=== PATIENT | female | born 1950 | race Caucasian/White ===

== ENCOUNTER 2017-06-28 04:00 | Inpatient (IN) | payer OTHER, MEDICARE ==
[~2017-06-28] VITALS: Ht 167.6 cm; Wt 73.0 kg
[~2017-06-28 04:00] MED LIST: CALCIUM 500 +1 EAC5 PO; CITALOPRAM HBR10 MG PO; DULERA 200 MCG/13 GM INH; ELIQUIS2.5 M1 PO; MULTIVITAMINS1 EAC9 PO; PROAIR HFA8.5 GM INH; SINGULAIR10 M1 PO; XOPENEX0.63 MG/1 INH/SOL
--- NOTE | 2017-06-28 09:10 | Admission Core Measures ---
Acute Coronary Syndrome (CM) ACS Core Measures Acute Coronary Syndrome Diagnosis No Congestive Heart Failure (NEW) CHF Core Measures Congestive Heart Failure Diagnosis No Cerebrovascular Accident (NEW) CVA Core Measures CVA/TIA Diagnosis No Venous Thromboembolism VTE Core Brittney (View Protocol) VTE Risk Factors Surgery No Mechanical VTE Prophylaxis d/t N/A MechProphylax Ordered No VTE Pharm Prophylaxis d/t NA PharmProphylax ordered Problem List As ranked by this Provider includes Assessment & Plan 1. Primary osteoarthritis of right hip HOME MEDS Home Med List Albuterol Sulfate (Proair Hfa) 90 MCG HFA.AER.AD 2 PUF INH PRN ASTHMA ( Reported) Apixaban (Eliquis) 2.5 MG TABLET 1 TAB PO BID BLOOD THINNER (Reported) Calcium Carbonate/Vitamin D3 (Calcium 500 + D Tablet) (Unknown Strength) TABLET (Unknown Dose) PO DAILY SUPPLEMENT (Reported) Citalopram Hydrobromide (Citalopram HBr) 10 MG TABLET 1 TAB PO DAILY MENTAL HEALTH (Reported) Levalbuterol HCl (Xopenex) 0.63 MG/3 ML VIAL.NEB 1 Vial INH/PEREZ PRN ASTHMA ( Reported) Mometasone/Formoterol (Dulera 200 Mcg/5 Mcg Inhaler) 200 MCG-5 MCG/ACTUATION HFA.AER.AD 2 PUF INH BID ASTHMA (Reported) Montelukast Sodium (Singulair) 10 MG TABLET 1 TAB PO DAILY ASTHMA (Reported) Multiple Vitamin (Multivitamins) 1 EACH TABLET 1 TAB PO DAILY SUPPLEMENT ( Reported)
--- NOTE | 2017-06-28 10:21 | RADIOLOGY REPORT ---
EXAMINATION: XR HIP, RIGHT CLINICAL INFORMATION: Status post right total hip arthroplasty COMPARISON: None TECHNIQUE: Two views of the right hip. FINDINGS: Medial right total hip arthroplasties noted with components in usual position no periprosthetic fracture or suspicious area of lucency. There is gas in the soft tissues compatible area related to recent surgery. IMPRESSION: Postop right total hip arthroplasty without complication by x-ray
--- NOTE | 2017-06-28 10:57 | Surg Short-stay <48hrs Dis Sum ---
Visit Information Visit Dates Admission Date: 06/28/17 Discharge Date: 07/02/17 Surgical Short Stay DC Summary Admission Diagnosis: Right hip pain related to primary right hip osteoarthritis Final Diagnosis: Same, status post right total hip arthroplasty Procedure(s): Right total hip arthroplasty Summary/Significant Findings: Patient was admitted to the hospital for an elective total joint replacement. Procedure was tolerated well and patient was transferred to a general surgical floor. post-op course was complicated by an arpiration pneumonia whcih she got 2 days of IV Unasyn for for and was discharged on PO Augmentin with instruction to follow-up with her crm marketing analyst. she also was transfusion 1 unit of pRBCs for acute blood loss anemia. Diet was advanced and tolerated. Physical therapy performed evaluation and treatment. At time of hospital discharge, vital signs were stable, neurovascular status was intact, and pain was controlled with the use of oral pain medications. Condition at Discharge: Stable Discharge Disposition: home health services Discharge instructions provided to patient/family: Yes Post discharge follow-up plan: Follow up with Dr. Santos in 6 weeks from date of surgery. Please call his office to schedule/confirm this appointment. FU with Pulmonoligist within 7 days on discharge Copies to: Shahzad BEAULIEU,Swathi Hernandez; Anand BEAULIEU,Eliel Andrews
[2017-06-28 11:04] VITALS: BP 108/58
--- NOTE | 2017-06-28 11:07 | Patient Discharge Instructions ---
Discharge Instructions General Discharge Information You were seen/treated for: Primary osteoarthritis right hip complicated by aspiration pneumonia You had these procedures: Right total hip arthroplasty Watch for these problems: Increasing pain despite the use of pain medication Increasing redness, warmth or swelling Drainage of any type from incision Inability to bear weight on operative leg Persistent nausea and vomiting Fever greater than 101.5 degrees Other wound care: Please keep wound clean and dry. No ointments or lotions of any type on or near incision. Your dressing will be changed by your nurse on the second day after your surgery. Daily dry dressing changes are recommended each day thereafter. You may shower 48hr after surgery. Do not soak your wound- no tub baths or swimming. Special Instructions: Eliquis (apixaban): You are taking this medication to help prevent blood clot formation during the postoperative period. Take as directed. Constipation: Pain medication can cause constipation. It is recommended that you take Colace and miralax daily. You may discontinue this medication if you develop loose stool or diarrhea. If you wish to continue this medication, it is available over the counter. If you are unable to move your bowels or pass gas after several days, please contact your doctor. Diet Continue normal diet: Yes Activity Activity Limited to: Weight bear as tolerated Additional ACTIVITY Info: Use assistive devices as needed Acute Coronary Syndrome Inclusion Criteria At DC or during hospital stay patient has or had the following: ACS DIAGNOSIS No Discharge Core Measures Meds if any: Prescribed or Continued at Discharge Meds if any: NOT Prescribed or Continued at Discharge Congestive Heart Failure Inclusion Criteria At DC or during hospital stay patient has or had the following: CHF DIAGNOSIS No Discharge Core Measures Meds if any: Prescribed or Continued at Discharge Meds if any: NOT Prescribed or Continued at Discharge Cerebrovascular accident Inclusion Criteria At DC or during hospital stay patient has or had the following: CVA/TIA Diagnosis No Discharge Core Measures Meds if any: Prescribed or Continued at Discharge Meds if any: NOT Prescribed or Continued at Discharge Venous thromboembolism Inclusion Criteria VTE Diagnosis No VTE Type NONE VTE Confirmed by (Test) NONE Discharge Core Measures - Per Current guidelines, there needs to be overlap - treatment for the first 5 days of Warfarin therapy. - If discharged on Warfarin prior to 5 days of - overlap therapy, the patient will need to be - assessed for post discharge needs including - *Post discharge parental anticoagulation - *Warfarin and/or parental anticoagulation education - *Follow up date to check INR post discharge At least 5 days overlap therapy as Inpatient No Meds if any: Prescribed or Continued at Discharge Note: Overlap Therapy is Warfarin and Anticoagulant Meds if any: NOT Prescribed or Continued at Discharge Meds if any: NOT Prescribed or Continued at Discharge
[2017-06-28] MEDS ORDERED: ELIQUIS2.5 M1 PO (11:12)
[2017-06-28] MEDS ORDERED: DILAUDID2 M1 PO (11:12)
[2017-06-28] MEDS ORDERED: MIRALAX17 G1 PO (11:12)
[2017-06-28] MEDS ORDERED: COLACE100 M1 PO (11:12)
[2017-06-28] MEDS ORDERED: PROTONIX20 M1 PO (11:12)
--- NOTE | 2017-06-28 14:09 | PN- Orthopedic ---
Subjective Subjective: POC feels well, no pain. +oob, ambulated. +void. parth reg diet. no sob/cp. Objective Vital Signs and I&Os Vital Signs Date Time Temp Pulse Resp B/P B/P Pulse O2 O2 Flow FiO2 Mean Ox Delivery Rate 06/28 1357 Room Air 06/28 1126 94 Room Air Room Air 06/28 1104 97.4 70 18 108/58 94 Room Air Room Air Intake & Output 06/28 1600 06/28 0800 06/28 0000 06/27 1600 06/27 0800 06/27 0000 Intake Total Output Total Balance Patient 161 lb Weight Weight Reported by Patient Measurement Method Physical Exam: gen- nad card- s1s2 rrr pulm- wheeze throughout abd- soft nt ext- r hip dressing w scant serosang drainage. palp dp bl, gross sensation intact, +dorsi/plantarflexion, calves soft nt bl Assessment/Plan Assessment/Plan A- POD0 sp R AMADA, stable, with PMHx asthma with wheezing on ascultation, though denies SOB and appropriate o2 sat on RA. P- - oob, wbat, pt - alps - eliquis 2.5mg bid to start in am - prn pain meds - home meds - TRC eval, neb now - reg diet as tolerated - will dw attending Core Measures Venous Thromboembolism VTE Risk Factors Surgery No Mechanical VTE Prophylaxis d/t N/A MechProphylax Ordered No VTE Pharm Prophylaxis d/t NA PharmProphylax ordered
--- NOTE | 2017-06-28 14:47 | Operative Report ---
Operative/Inv Procedure Report Surgery Date: 06/28/17 Name of Procedure: Right total hip replacement Pre-Operative Diagnosis: Primary right hip DJD Post-Operative Diagnosis: Same Estimated Blood Loss: 250 Surgeon/Dairy Husbandry Worker: Tom BEAULIEU,Roly Mendez Anesthesia: block Operative/Procedure Note Note: Description of Procedure: The patient was taken to the operating room and positively identified. After induction of spinal anesthesia and administration of appropriate pre-operative antibiotics, the patient was positioned supine on the operating room table and all bony prominences were well padded. After performing a surgical timeout, the right lower extremity was prepped and draped in the usual sterile fashion. A direct anterior approach was made to the right hip. The incision was carried sharply through superficial soft tissues to the level of the fascia. Meticulous hemostasis was maintained with Bovie electocautery. The fascia over the tensor fascia torsten muscle was opened sharply and the interval between the TFL and the sartorius was entered bluntly taking care to stay lateral to the lateral femoral cutaneous nerve. Retractors were placed around the femoral neck and the pericapsular fat was identified. The ascending branches of the lateral femoral circumflex vessels were identified and carefully coagulated. The pericapsular fat and anterior capsule were then resected. A napkin ring osteotomy was performed and the femoral head was removed without difficulty. Attention was then turned to the acetabulum. After appropriate placement of retractors, the acetabulum was exposed. Soft tissue was cleaned from the acetabular margin and notch. Overhanging osteophytes were removed and the teardrop was exposed. The acetabulum was then sequentially reamed to accept a 54 mm Cricket Tritanium hemispherical solid shell. This was impacted into place in the appropriate position and fitted with a 36 mm Trident X3 zero degree polyethylene insert. Attention was then turned to the femur. After performing the appropriate ligament releases, the proximal femur was exposed. It was then sequentially broached to accept a size #4 Providence Accolade 2 stem. This was trialed for leg length and stability. The trial component was removed and the final component was impacted into place. The trunnion was carefully cleaned and fit with a 36 mm, -2.5 Biolox delta ceramic femoral head. The hip was reduced and put through a full range of motion and found to be stable. The articular space was then irrigated with sterile saline. The periarticular soft tissues were infilitrated with Marcaine. The fascial layer was closed with interrupted #1 vicryl suture and the skin was re-approximated with interrupted 2 -0 vicryl. The skin was closed with a running 3-0 V-Lock suture. Steri-strips and a sterile dressing were applied. The patient was awakened and taken to the recovery room in satisfactory condition.
[2017-06-28 16:00] VITALS: BP 100/60
[2017-06-28 19:51] VITALS: BP 110/70
[2017-06-28 21:42] VITALS: BP 108/62
[2017-06-29 00:10] VITALS: BP 102/60
[2017-06-29 04:32] VITALS: BP 100/58
[2017-06-29 07:50] VITALS: BP 108/56
--- NOTE | 2017-06-29 09:01 | PN- Orthopedic ---
Subjective Subjective: Reports nausea and dizziness this morning, which she feels followed taking prilosec. Out of bed with PT. No shortness of breath. No chest pains. Voiding without difficulty. She expresses apprehension about going home today feeling the way she does currently. Objective Vital Signs and I&Os Vital Signs Date Time Temp Pulse Resp B/P B/P Pulse O2 O2 Flow FiO2 Mean Ox Delivery Rate 06/29 0750 98.3 78 18 108/56 95 Room Air Room Air 06/29 0432 98.3 80 20 100/58 94 Room Air 06/29 0010 97.6 70 20 102/60 94 Room Air 06/28 2142 97.4 71 18 108/62 96 Room Air 06/28 1951 98.3 68 18 110/70 94 Room Air 06/28 1600 97.8 71 18 100/60 92 Room Air 06/28 1428 95 Room Air 06/28 1357 Room Air 06/28 1126 94 Room Air Room Air 06/28 1104 97.4 70 18 108/58 94 Room Air Room Air Intake & Output 06/29 1600 06/29 0800 06/29 0000 06/28 1600 06/28 0800 06/28 0000 Intake Total 127 811 6430 Output Total 350 350 400 Balance 490 150 725 Intake, IV 600 325 Intake, Oral 240 500 800 Output, Urine 350 350 400 Patient 161 lb Weight Weight Reported by Patient Measurement Method Physical Exam: General - alert & oriented x 3. comfortable. no acute distress. Lungs - clear bilaterally. no w/r/r. Cardiac - s1s2 Abdomen - soft. nontender. Extremities - warm bilaterally. right hip dressing stained with serosang drainage, but intact. some ecchymosis noted, but thigh is soft. calves soft and nontender b/l. athrombics in place. nvi. Current Medications: Current Medications Sig/Tomasa Start time Last Medication Dose Route Stop Time Status Admin Acetaminophen 650 MG Q4P PRN 06/28 1115 AC PO Acetaminophen 975 MG ONCE 06/28 0000 DC PO 06/28 2359 Albuterol Sulfate 3 ML ONCE ONE 06/28 1415 DC 06/28 INH 06/28 1416 1416 Albuterol Sulfate 2 PUF Q6-PRN PRN 06/28 1115 AC INH Albuterol Sulfate 2 PUF Q6-PRN PRN 06/28 0915 DC INH Apixaban 2.5 MG BID 06/29 0900 AC 06/29 PO 0800 Cefazolin Sodium 2 GM IQ8 06/28 1600 DC 06/29 N/A 1 UNIT IV 06/29 0029 0023 Cefazolin Sodium 2,000 MG ONCE 06/28 0000 DC IV 06/28 2359 Citalopram 10 MG DAILY 06/29 0900 DC Hydrobromide PO Citalopram 10 MG DAILY 06/29 0900 AC 06/29 Hydrobromide PO 0800 Dextrose/Sodium 1,000 ML .[id number] 06/28 1115 AC 06/29 Chloride IV 0036 Docusate Sodium 100 MG BID 06/28 2100 AC 06/29 PO 0801 Hydromorphone HCl 2 MG Q4P PRN 06/28 1115 AC 06/29 PO 0801 Hydromorphone HCl 4 MG Q4P PRN 06/28 1115 AC PO Ketorolac 15 MG Q8P PRN 06/28 1115 AC 06/28 Tromethamine IV 1937 Montelukast Sodium 10 MG DAILY 06/29 0900 DC PO Montelukast Sodium 10 MG DAILY 06/29 0900 AC 06/29 PO 0801 Morphine Sulfate 2 MG Q2P PRN 06/28 1115 AC IV Omeprazole 20 MG DAILY AC 06/29 0700 AC 06/29 PO 0547 Ondansetron HCl 4 MG Q6P PRN 06/28 1115 AC 06/29 IV 0848 Oxycodone HCl 10 MG ONCE 06/28 0000 DC PO 06/28 2359 Polyethylene Glycol 17 GM DAILY 06/29 0900 AC 06/29 PO 0800 Promethazine HCl 12.5 MG Q6P PRN 06/28 1115 AC IV 07/05 0944 Results Last 48 Hours of Labs: Laboratory Tests 06/29 0820 Chemistry Sodium Pending Potassium Pending Chloride Pending Carbon Dioxide Pending Anion Gap Pending BUN Pending Creatinine Pending BUN/Creatinine Ratio Pending Hematology CBC w Diff Pending WBC Pending RBC Pending Hgb Pending Hct Pending MCV Pending MCH Pending MCHC Pending RDW Pending Plt Count Pending MPV Pending Assessment/Plan Assessment/Plan This 67 year old female with hx asthma is POD#1 s/p R THR diet as tolerated. d/c iv fluids zofran prn nausea d/c prilosec (she feels like this is what caused her nausea) eliquis 2.5mg BID - dvt ppx oob with PT, with some dizziness and nausea this morning IST / albuterol prn asthma d/c planning, home later today vs tomorrow depending on her symptoms will d/w Core Measures Venous Thromboembolism VTE Risk Factors Surgery No Mechanical VTE Prophylaxis d/t N/A MechProphylax Ordered No VTE Pharm Prophylaxis d/t NA PharmProphylax ordered
[2017-06-29 09:02] LABS: ABSOLUTE BASOPHIL COUNT 0 /CUMM (0.0-0.2); ABSOLUTE EOSINOPHIL COUNT 0 /CUMM (0.0-0.7); ABSOLUTE GRANULOCYTE CT 5.5 /CUMM (1.4-6.5); ABSOLUTE LYMPH COUNT 1.6 /CUMM (1.2-3.4); ABSOLUTE MONOCYTE COUNT 0.6 /CUMM (0.10-0.60); BASOPHIL % 0.3 % (0.0-2.0); EOSINOPHIL % 0 % (0-5); GRANULOCYTE % 71.6 % (42.2-75.2); HEMATOCRIT 28.1 % (37-47); MEAN CORPUSCULAR HGB CONC 33.7 G/DL (33.0-37.0); MEAN CORPUSCULAR VOLUME 88.9 FL (81.0-99.0); MEAN PLATELET VOLUME 8.1 FL (7.4-10.4); PLATELET COUNT 190 /CUMM (130-400); RBC DISTRIBUTION WIDTH 13.7 % (11.5-14.5); RED BLOOD CELL CT 3.16 /CUMM (4.20-5.40); WHITE BLOOD CELL COUNT 7.6 /CUMM (4.8-10.8)
[2017-06-29 12:14] VITALS: BP 112/54
[2017-06-29 16:00] VITALS: BP 110/52
--- NOTE | 2017-06-29 20:43 | ULTRASOUND REPORT ---
EXAMINATION: US TRIPLEX LOWER EXTREMITY, RIGHT CLINICAL INFORMATION: Swelling and tenderness right lower extremity. COMPARISON: None TECHNIQUE: Color-flow triplex imaging with spectral analysis and compression Doppler were performed on the lower extremity. FINDINGS: Per technologist note, the exam was extremely limited due to immobility. The popliteal fossa could not be visualized. The exam could not be completed secondary to pain. The right common femoral, femoral, and proximal greater saphenous venous segments appear patent. IMPRESSION: Limited, incomplete exam without evidence of thrombus in the right common femoral or femoral veins.
[2017-06-29 21:30] VITALS: BP 110/58
[2017-06-30] VITALS: BP 132/58
--- NOTE | 2017-06-30 00:46 | Event Note ---
Event Note Event Note: S: Approximately 12:15 a.m., RN called a rapid response after patient was found to be minimally responsive, hypoxic O2-60-70% on room air and lethargic. RN reported surgical PA was made aware but was unable to attend to the situation because currently in OR, RN was instructed to complete a stat CXR. House staff and attending at bedside. Vitals: Tmax-100.1, 132/58, P 96, RR 14, O2 sat 92% ON 4LNC, glucose 146. Physical exam: Lethargic, noncommunicative, +S1/S2, + rhonchi, no active bleeding visualized, right hip dressing intact with serosanguineous drainage B: Ms. Chavez is a 67 year old female with PMH of asthma, POD#1 s/p elective R THR without complication, patient of Dr. Santos on Eliquis 2.5mg BID for DVT prophylaxis. A/R: Patient appears to be lethargic most likely due to anesthetics given during surgery and pain medications recently given. Patient was given 2 mg Dilaudid at 10 pm and previously morphine 2 mg at 8:40 pm Stat naloxone 0.04 mg Stat ECG, troponin, CBC, BEP, mag, phosphorus Await CXR Aspiration precautions NPO for now IV hydration with D5 NS for 75 cc per hour for 1 bag DC Dilaudid IV morphine 2 mg every 4-6 when necessary for severe pain IV ketorolac every 8 for moderate pain By mouth Tylenol for mild pain see medical consult note for more details
[2017-06-30 01:03] LABS: ABSOLUTE BASOPHIL COUNT 0 /CUMM (0.0-0.2); ABSOLUTE EOSINOPHIL COUNT 0 /CUMM (0.0-0.7); ABSOLUTE GRANULOCYTE CT 5.2 /CUMM (1.4-6.5); ABSOLUTE LYMPH COUNT 1.5 /CUMM (1.2-3.4); ABSOLUTE MONOCYTE COUNT 0.6 /CUMM (0.10-0.60); BASOPHIL % 0.2 % (0.0-2.0); EOSINOPHIL % 0 % (0-5); GRANULOCYTE % 71.8 % (42.2-75.2); HEMATOCRIT 26.2 % (37-47); MEAN CORPUSCULAR HGB 29.5 PG (27.0-31.0); MEAN CORPUSCULAR HGB CONC 33.4 G/DL (33.0-37.0); MEAN CORPUSCULAR VOLUME 88.5 FL (81.0-99.0); MEAN PLATELET VOLUME 7.8 FL (7.4-10.4); PLATELET COUNT 179 /CUMM (130-400); RED BLOOD CELL CT 2.96 /CUMM (4.20-5.40); WHITE BLOOD CELL COUNT 7.3 /CUMM (4.8-10.8)
--- NOTE | 2017-06-30 01:20 | RADIOLOGY REPORT ---
EXAMINATION: XR PORTABLE CHEST CLINICAL INFORMATION: Unresponsive. Rule out acute pathology. COMPARISON: None TECHNIQUE: Portable frontal view of the chest was obtained. FINDINGS: The lung apices are not included on the [id number] of this study. There is a left basilar opacity with small left pleural effusion. The right base is clear. No gross evidence of pneumothorax. The cardiomediastinal silhouette is mildly prominent. IMPRESSION: Small left pleural effusion with associated basilar atelectasis/pneumonia.
--- NOTE | 2017-06-30 01:45 | Cons- Medical ---
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 Santos's service for right total hip replacement. She underwent THR on June 28 and was doing well post- operatively, except for mild nausea and vomiting. On June 29 at midnight, patient became more lethargic and minimally responsive, hence RN called rapid response. On my evaluation, patient was opening eyes briefly but not responding to questions. She also looked pale, was hypoxic to 65-70% on RA. Pupils were pinpoint. As per RN, patient had vomited small amount of brown material few minutes prior. Patient had been consuming a regular diet. She was receiving morphine and dilaudid for pain control. At the time of evaluation, patient was unable to provide any history and unable to obtain review of systems. One dose of narcan 0.4 mg was given with good effect. Patient became more awake and alert. I re-evaluated patient a few hours later, she was awake, arousable and responded to a few questions but was not very vocal. I reviewed history from the chart - outpatient PCP pre-op clearance sheet and pulmonary medicine consults (Tami Rowland PA-C (Formerly [facility] [place]) at [facility]). Chest CT (04/16/2017) progression of mild mucus plugging and tree-in-bud changes to right upper lobe, resolved ground glass nodule seen previously in the posterior aspect of right apical region. PFT (August 2016): mild restriction cannot rule out obstruction, FEV1/FVC 75. Patient's asthma is well controlled on Dulera, Singulair, albuterol PRN and monthly injections of mepolizumab. Per PCP, patient is at INCREASED RISK of acute asthma exacerbation and DVT/PE perioperatively. Primary provoking factors for her asthma include strong odors and perfumes. So it is imperative, that all staff refrains from wearing any scented products. Maintain on inhalers perioperatively. Use LMWH if heparin is indicated due to h/o low platelet on heparin drip ( presumed HIT). Dr. Carver (watch assembler) indicates lifelong anticoagulation, hold eliquis x 48 hours pre op and resume as soon as safe to minimize chance of clot. Allergies/Medications Allergies: Coded Allergies: heparin (Severe, severe drop in platelets 06/28/17) Sulfa (Sulfonamide Antibiotics) (GIANT HIVES 06/25/17) Home Med List: Albuterol Sulfate (Proair Hfa) 90 MCG HFA.AER.AD 2 PUF INH PRN ASTHMA ( Reported) Apixaban (Eliquis) 2.5 MG TABLET 1 TAB PO BID anticoagulant Calcium Carbonate/Vitamin D3 (Calcium 500 + D Tablet) 500 MG-400 TABLET 1 TAB PO DAILY SUPPLEMENT (Reported) Citalopram Hydrobromide (Citalopram HBr) 10 MG TABLET 1 TAB PO DAILY MENTAL HEALTH (Reported) Docusate Sodium (Colace) 100 MG CAPSULE 1 CAP PO BID STOOL SOFTENER STOP TAKING IF YOU DEVELOP LOOSE STOOL/DIARRHEA Hydromorphone HCl (Dilaudid) 2 MG TABLET 1-2 TAB PO Q4-6 PRN PRN PAIN Levalbuterol HCl (Xopenex) 0.63 MG/3 ML VIAL.NEB 1 Vial INH/PEREZ PRN ASTHMA ( Reported) Mometasone/Formoterol (Dulera 200 Mcg/5 Mcg Inhaler) 200 MCG-5 MCG/ACTUATION HFA.AER.AD 2 PUF INH BID ASTHMA (Reported) Montelukast Sodium (Singulair) 10 MG TABLET 1 TAB PO DAILY ASTHMA (Reported) Multiple Vitamin (Multivitamins) 1 EACH TABLET 1 TAB PO DAILY SUPPLEMENT ( Reported) Polyethylene Glycol 3350 (Miralax) 17 GRAM POWD.PACK 1 PAC PO DAILY CONSTIPATION dissolve in water. STOP TAKING IF YOU DEVELOP LOOSE STOOL/DIARRHEA Current Medications: Current Medications Sig/Tomasa Start time Last Medication Dose Route Stop Time Status Admin Acetaminophen 650 MG Q4P PRN 06/28 1115 AC PO Albuterol Sulfate 2 PUF Q6-PRN PRN 06/28 1115 AC INH Ampicillin Sodium/ 3,000 MG Q6 06/30 0115 UNVr Sulbactam Sodium IV Sodium Chloride 100 ML Apixaban 2.5 MG BID 06/29 0900 AC 06/29 PO 2042 Citalopram 10 MG DAILY 06/29 0900 DC Hydrobromide PO Citalopram 10 MG DAILY 06/29 0900 AC 06/29 Hydrobromide PO 0800 Dextrose/Sodium 1,000 ML ONCE ONE 06/30 0115 UNVr 06/30 Chloride IV 06/30 1434 0122 Dextrose/Sodium 1,000 ML .[id number] 06/28 1115 DC 06/29 Chloride IV 0036 Docusate Sodium 100 MG BID 06/28 2100 AC 06/29 PO 2042 Hydromorphone HCl 2 MG Q4P PRN 06/28 1115 DC 06/29 PO 2159 Hydromorphone HCl 4 MG Q4P PRN 06/28 1115 DC 06/29 PO 1700 Ketorolac 15 MG Q8P PRN 06/28 1115 r 06/28 Tromethamine IV 1937 Montelukast Sodium 10 MG DAILY 06/29 0900 DC PO Montelukast Sodium 10 MG DAILY 06/29 0900 AC 06/29 PO 0801 Morphine Sulfate 2 MG Q6P PRN 06/30 0115 UNVr IV Morphine Sulfate 2 MG Q2P PRN 06/28 1115 DC 06/29 IV 2040 Naloxone HCl 0.4 MG ONCE ONE 06/30 0045 DC 06/30 IV 06/30 0046 0035 Omeprazole 20 MG DAILY AC 06/29 0700 DC 06/29 PO 0547 Ondansetron HCl 4 MG Q6P PRN 06/28 1115 AC 06/30 IV 0019 Patient Medication 1 ED ONE ONE 06/29 1645 DC Teaching ED 06/29 1646 Polyethylene Glycol 17 GM DAILY 06/29 0900 AC 06/29 PO 0800 Promethazine HCl 12.5 MG Q6P PRN 06/28 1115 AC IV 07/05 0944 Sodium Chloride 500 ML BOLUS ONE 06/29 1345 DC 06/29 IV 06/29 1444 1338 Review of Systems Review of Systems Constitutional: Reports: see HPI (Unable to obtain). Past History Medical History Blood Transfusion Hx: No Neurological: NONE EENT: NONE Cardiovascular: Right sided aortic arch, Transient SVT - resolved Respiratory: asthma (moderate persistent atopic), bronchiectasis Gastrointestinal: Crohn's disease (Crohn's proctitis) Hepatic: NONE Renal: NONE Musculoskeletal: osteoarthritis, osteoporosis Psychiatric: NONE Endocrine: NONE Blood Disorders: DVT (b/l ileofemoral 2015), hep ind thrombocytopenia, PE ( status post knee surgery-2010) Cancer(s): melanoma ROLL GRINDER OPERATOR/Reproductive: NONE Surgical History Surgical History: appendectomy, cataract removal, , knee replacement ( right knee), IVC filter Family History Relations & Conditions If Any: Relation not specified for: *No pertinent family history Psychosocial History Where Do You Live? Home Services at Home: None Primary Language: Serbian Smoking Status: Never Smoked ETOH Use: occasional use Illicit Drug Use: denies illicit drug use Functional Ability ADLs Independent: dressing, toileting, bathing. Ambulation: independent Exam & Diagnostic Data Last 24 Hrs of Vital Signs/I&O Vital Signs Date Time Temp Pulse Resp B/P B/P Pulse O2 O2 Flow FiO2 Mean Ox Delivery Rate 06/30 0000 100.1 96 14 132/58 92 Nasal 4.0L Cannula 06/29 2130 100.2 79 20 110/58 92 Room Air 06/29 1600 98.6 77 18 110/52 93 Room Air 06/29 1214 98.7 82 20 112/54 94 Room Air 06/29 0750 98.3 78 18 108/56 95 Room Air Room Air 06/29 0432 98.3 80 20 100/58 94 Room Air Intake & Output 06/30 0800 06/30 0000 06/29 1600 Intake Total 480 1300 Output Total 300 650 Balance 180 650 Intake, IV 500 Intake, Oral 480 800 Output, Urine 300 650 Physical Exam General Appearance: well developed/nourished, no apparent distress, lethargic, minimally responsive Head: atraumatic, normal appearance Eyes: Bilateral: normal appearance, PERRL, EOMI. Ears, Nose, Throat: normal pharynx, Dry mucosa Neck: supple Respiratory: Left basilar crackles, with scattered rhonchi. Cardiovascular: regular rate/rhythm, murmur (systolic murmur present) Peripheral Pulses: 4+ dorsalis pedis (R), 4+ dorsalis pedis (L) Gastrointestinal: normal bowel sounds, soft, non-tender Extremities: Right hip: swollen, tense and ecchymosis, dressing stained with serosanguinous discharge. Neurologic/Psych: awake, alert (limited neuro exam) Last 24 Hrs of Labs/Hunter: Laboratory Tests 06/30/17 0050: Anion Gap 8, Estimated GFR > 60, BUN/Creatinine Ratio 18.8, Phosphorus 3.3, Magnesium 1.9, Troponin I Pending, CBC w Diff NO MAN DIFF REQ, RBC 2.96 L, MCV 88.5, MCH 29.5, MCHC 33.4, RDW 14.0, MPV 7.8, Gran % 71.8, Lymphocytes % 19.9 L , Monocytes % 8.1, Eosinophils % 0, Basophils % 0.2, Absolute Granulocytes 5.2, Absolute Lymphocytes 1.5, Absolute Monocytes 0.6, Absolute Eosinophils 0, Absolute Basophils 0 06/30/17 0045: pH 7.41, pCO2 39, pO2 79 L, HCO3 24, ABG O2 Sat (Measured) 95.0 L, P-50 (Temp Corrected) N, Carboxyhemoglobin 0.1 L, O2 Concentration % 4L, O2 Delivery Method N/C, Phlebotomy Draw Site RIGHT RADIAL 06/29/17 0820: Anion Gap 9, Estimated GFR > 60, BUN/Creatinine Ratio 23.3, CBC w Diff NO MAN DIFF REQ, RBC 3.16 L, MCV 88.9, MCH 30.0, MCHC 33.7, RDW 13.7, MPV 8.1, Gran % 71.6, Lymphocytes % 20.9, Monocytes % 7.2, Eosinophils % 0, Basophils % 0.3, Absolute Granulocytes 5.5, Absolute Lymphocytes 1.6, Absolute Monocytes 0.6, Absolute Eosinophils 0, Absolute Basophils 0 Diagnostic Data EKG Results Sinus rhythm, TWI in III, avF (old), T-wave flattening in lead V2-5. Previous EKG (June 17): Sinus rhythm, with TWI in lead III, aVF nonspecific. CXR Results Small left pleural effusion with associated basilar atelectasis/pneumonia. Other Results RLE venous doppler: Limited, incomplete exam without evidence of thrombus in the right common femoral or femoral veins. Assessment/Plan Assessment/Plan 67 yo F with h/o moderate persistent asthma, previous DVT/ PE on eliquis, OA, who is POD 2 s/p right THR, medicine consulted after rapid response was called for lethargy and respiratory failure. 1. Acute hypoxic respiratory failure in the setting of opiate use and possible aspiration pneumonitis/ pneumonia. 2. Acute blood loss anemia status post recent surgery 3. Status post right total hip replacement, possible localized bleed into hip region 4. History of moderate persistent atopic asthma 5. S/p right TKR c/b SVT and PE in 2010, and then bilateral DVT in 2016 c/b HIT (negative HIT Ab), now s/p IVC filter and lifelong anticoagulation with Eliquis - Continue to monitor on the medical floor. - Blood cultures x 2 - Total respiratory care with albuterol and ipratropium scheduled and as needed - Incentive spirometry - IV Unasyn empirically for aspiration - NPO for now until mentation improves - Check swallow eval in AM - Serial EKG and troponin to rule out ACS - Gentle IV fluids - Discontinue dilaudid - Pain management with Tylenol for mild pain, ketorolac for moderate pain and IV morphine for severe pain only (hold for sedation or lethargy). - Type and crossmatch - Goal Hb > 7.0 - Guaiac all stools - Check iron studies, TSH, B12, folic acid. - Eliquis for DVT prophylaxis. - Consider CT right lower extremity - Given extensive history of VTE, if her respiratory status does not improve, would consider CTA chest to assess for PE. - Currently not in asthma exacerbation, so will hold off on steroids, but continue with albuterol nebs, dulera and singulair. Dulera not available with pharmacy, will change to Symbicort. - All staff refrain from wearing any scented products. - Family to be informed by Surgical PA. - Plan discussed with RN and medical housestaff. DVT ppx - Eliquis. Full code. Problem List: 1. Primary osteoarthritis of right hip Copies To: Roly Santos MD Consult Acknowledgment - Thank you for your consult request. Attending MD Review Statement Attending Statement Attending MD Statement: examined this patient, discuss w/resident/PA/REAL ESTATE ASSET MANAGER, reviewed images, amended to note Attending Assessment/Plan: As above.
[2017-06-30 02:30] VITALS: BP 100/58
[2017-06-30 05:06] VITALS: BP 122/68
--- NOTE | 2017-06-30 07:18 | PN- Medicine Consult ---
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 Santos's service for right total hip replacement. She underwent THR on June 28. Overnight a rapid response was called after patient appeared lethargic and had percent oxygenation between 65 and 70% on room air. Narcan was administered as the thought was that the patient may have had too many medications on board, patient did improve mental status. Medicine team has been consulted for management of suspected aspiration pneumonia. Plan: #Acute hypoxic respiratory failure query PE vs aspiration PNA vs oversedation due to opiate medication. Currently on nasal cannula 4 L. PE conitnues to be on the differential. PLAN CTA rule out PE. Given previous history, this remains one of the differentials. Conitnue IV Unasyn Encourage use of incentive spirometer. Formal swallow evaluation to follow. Follow blood cultures and LRC. TRC Nebs PRN. Discontinue all Dilaudid, use morphine sparingly. May consider repeating x-ray in 24-48 hours. Maintain aspiration precautions. #Acute blood loss anemia H&H is stable this morning. Continue to monitor. PLAN CBC IN AM. Guaiac all stools. Follow Iron Studies, B12, Folate. #Status post right total hip replacement Patient's right thigh does appear swollen. If increased pain pain may consider measuring pressures to ensure compartment syndrome does not occur. PLAN Management as per surgery. #History of moderate persistent atopic asthma Currently Stable. Plan Continue Symbicort and Albuterol Due to patient's severe history of bronchospasm, avoid all scented products house staff may consider wearing precaution gowns if needed. 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 Plan CBC Daily. Eliquis 2.5 mg. Patient is a full code. Subjective Subjective: Mrs. Morfin was seen and examined this morning. She is resting comfortably in bed. States that she recalls only a few details of her events overnight although does remember not being able to respond appropriately. This morning she states that her breathing is better and although has required supplemental oxygen she does not feel short of breath. She is currently on 4 L. States her leg pain on the right is better controlled today, she rates it at a 5 out of 10 in severity where it was previously rated at 15 out of 10 in severity. Currently nothing by mouth owing to a scheduled swallow evaluation later on today. Incentive spirometer is at bedside although patient states that she has not using it. Denies any fever, chills, nausea, vomiting. Review of Systems Constitutional: Reports: see HPI. Objective Last 24 Hrs of Vital Signs/I&O Vital Signs Date Time Temp Pulse Resp B/P B/P Pulse O2 O2 Flow FiO2 Mean Ox Delivery Rate 06/30 0904 98.9 82 18 108/60 96 Nasal 4.0L Cannula 06/30 0506 98.5 92 20 122/68 96 Nasal 4.0L Cannula 06/30 0230 94 16 100/58 98 Nasal 4.0L Cannula 06/30 0000 94 Nasal 4.0L Cannula 06/30 0000 100.1 96 14 132/58 92 Nasal 4.0L Cannula 06/29 2130 100.2 79 20 110/58 92 Room Air 06/29 1600 98.6 77 18 110/52 93 Room Air 06/29 1214 98.7 82 20 112/54 94 Room Air Intake & Output 06/30 1600 06/30 0800 06/30 0000 Intake Total 375 480 Output Total 250 300 Balance 125 180 Intake, IV 375 Intake, Oral 480 Output, Urine 250 300 Physical Exam General Appearance: well developed/nourished, no apparent distress, alert, awake Head: atraumatic, normal appearance Ears, Nose, Throat: normal ENT inspection, NC in Place Cardiovascular: regular rate/rhythm Respiratory: normal breath sounds, chest non-tender, no respiratory distress, Expiratory Wheezing noted Peripheral Pulses: 4+ dorsalis pedis (R), 4+ dorsalis pedis (L) Abdomen: normal bowel sounds Back: normal range of motion Neurologic/Psychiatric: no motor/sensory deficits, awake, alert Current Medications: Current Medications Sig/Tomasa Start time Last Medication Dose Route Stop Time Status Admin Acetaminophen 1,000 MG Q6H 06/30 0915 AC N/A 1 UNIT IV 07/01 0329 Acetaminophen 650 MG Q4P PRN 06/28 1115 AC PO Albuterol Sulfate 3 ML Q4 HRS NEEDED PRN 06/30 0530 AC INH Albuterol Sulfate 2 PUF Q6-PRN PRN 06/28 1115 AC INH Ampicillin Sodium/ 3,000 MG Q6H 06/30 0200 AC 06/30 Sulbactam Sodium IV 0839 Sodium Chloride 100 ML Apixaban 2.5 MG BID 06/29 0900 AC 06/30 PO 0839 Budesonide/ 2 PUF BID 06/30 09 AC Formoterol Fumarate INH Citalopram 10 MG DAILY 06/29 0900 AC 06/30 Hydrobromide PO 0839 Dextrose/Sodium 1,000 ML ONCE ONE 06/30 0115 AC 06/30 Chloride IV 06/30 1434 0122 Docusate Sodium 100 MG BID 06/28 2100 AC 06/30 PO 0839 Hydromorphone HCl 2 MG Q4P PRN 06/28 1115 DC 06/29 PO 2159 Hydromorphone HCl 4 MG Q4P PRN 06/28 1115 DC 06/29 PO 1700 Ketorolac 15 MG Q8P PRN 06/28 1115 AC 06/30 Tromethamine IV 0838 Montelukast Sodium 10 MG DAILY 06/29 0900 AC 06/30 PO 0839 Morphine Sulfate 2 MG Q6P PRN 06/30 0115 AC IV Morphine Sulfate 2 MG Q2P PRN 06/28 1115 DC 06/29 IV 2040 Naloxone HCl 0.4 MG ONCE ONE 06/30 0045 DC 06/30 IV 06/30 0046 0035 Ondansetron HCl 4 MG Q6P PRN 06/28 1115 AC 06/30 IV 0019 Patient Medication 1 ED ONE ONE 06/29 1645 DC Teaching ED 06/29 1646 Polyethylene Glycol 17 GM DAILY 06/29 0900 AC 06/30 PO 0838 Promethazine HCl 12.5 MG Q6P PRN 06/28 1115 AC IV 07/05 0944 Sodium Chloride 500 ML BOLUS ONE 06/29 1345 DC 06/29 IV 06/29 1444 1338 Results Last 24 Hrs Lab/Hunter Results: Laboratory Tests 06/30/17 0745: Anion Gap 5, Estimated GFR > 60, BUN/Creatinine Ratio 21.4, Magnesium 1.8, Troponin I 0.10, CBC w Diff NO MAN DIFF REQ, RBC 2.70 L, MCV 88.9, MCH 30.4, MCHC 34.2, RDW 13.9, MPV 8.5, Gran % 67.9, Lymphocytes % 22.1, Monocytes % 9.8 H, Eosinophils % 0, Basophils % 0.2, Absolute Granulocytes 4.6, Absolute Lymphocytes 1.5, Absolute Monocytes 0.7 H, Absolute Eosinophils 0, Absolute Basophils 0 06/30/17 0050: Anion Gap 8, Estimated GFR > 60, BUN/Creatinine Ratio 18.8, Phosphorus 3.3, Magnesium 1.9, Troponin I 0.06, CBC w Diff NO MAN DIFF REQ, RBC 2.96 L, MCV 88.5, MCH 29.5, MCHC 33.4, RDW 14.0, MPV 7.8, Gran % 71.8, Lymphocytes % 19.9 L , Monocytes % 8.1, Eosinophils % 0, Basophils % 0.2, Absolute Granulocytes 5.2, Absolute Lymphocytes 1.5, Absolute Monocytes 0.6, Absolute Eosinophils 0, Absolute Basophils 0 06/30/17 0045: pH 7.41, pCO2 39, pO2 79 L, HCO3 24, ABG O2 Sat (Measured) 95.0 L, P-50 (Temp Corrected) N, Carboxyhemoglobin 0.1 L, O2 Concentration % 4L, O2 Delivery Method N/C, Phlebotomy Draw Site RIGHT RADIAL Microbiology 06/30 0150 BLOOD: Blood Culture - RECD 06/30 0125 BLOOD: Blood Culture - RECD Evin Cantu MD 06/30/17 1617: Attending MD Review Statement Attending Sign Off Attending Cosign Statement: I have: examined this patient, reviewed aval EMR data, personally reviewd images, discussd w/resident/PA/HUMAN RESOURCE PROFESSIONAL, agreed w/resident/PA/HUMAN RESOURCE PROFESSIONAL, amended to note. Other Findings: The patient was seen and discussed with house staff. CTPA was done and no acute PE, only pneumonia. Will continue Unasyn.
--- NOTE | 2017-06-30 08:31 | PN- Orthopedic ---
Subjective Subjective: PT IN BED ON 4L O2 VIA NASAL CANULA, NO COMPLAINT OF SOB AT THIS TIME. NO CP STILL WITH PAIN IN RIGHT THIGH DISTAL TO OPERATIVE SITE. OOB WITH PHYSICAL THERAPY YESTERDAY WITH SIGNIF PAIN IN RIGHT THIGH DENIES FEVERS. VOIDING. TOLERATING PO, ALTHOUGH NPO NOW Objective Vital Signs and I&Os Vital Signs Date Time Temp Pulse Resp B/P B/P Pulse O2 O2 Flow FiO2 Mean Ox Delivery Rate 06/30 0506 98.5 92 20 122/68 96 Nasal 4.0L Cannula 06/30 0230 94 16 100/58 98 Nasal 4.0L Cannula 06/30 0000 94 Nasal 4.0L Cannula 06/30 0000 100.1 96 14 132/58 92 Nasal 4.0L Cannula 06/29 2130 100.2 79 20 110/58 92 Room Air 06/29 1600 98.6 77 18 110/52 93 Room Air 06/29 1214 98.7 82 20 112/54 94 Room Air Intake & Output 06/30 1600 06/30 0800 06/30 0000 06/29 1600 06/29 0800 06/29 0000 Intake Total 932 060 2515 840 500 Output Total 250 300 650 350 350 Balance 125 180 650 490 150 Intake, IV 375 500 600 Intake, Oral 480 800 240 500 Output, Urine 250 300 650 350 350 Physical Exam: GEN-NAD RESP- END EXPIRATORY WHEEZES BILATERALLY CARDIAC- RRR ABD- SOFT,NT EXT- ECCHYMOSIS AROUND RIGHT HIP INCISION, NO DRAINAGE, DRESSING CHANGED, THIGH VERY TENDER AND SWOLLEN. NO SURROUNDING ERYTHEMA. 2+ DP PULSE DISTAL SENSORY AND MOTOR FUNCTION INTACT Current Medications: Current Medications Sig/Tomasa Start time Last Medication Dose Route Stop Time Status Admin Acetaminophen 650 MG Q4P PRN 06/28 1115 AC PO Albuterol Sulfate 3 ML Q4 HRS NEEDED PRN 06/30 0530 AC INH Albuterol Sulfate 2 PUF Q6-PRN PRN 06/28 1115 AC INH Ampicillin Sodium/ 3,000 MG Q6H 06/30 0200 AC 06/30 Sulbactam Sodium IV 0839 Sodium Chloride 100 ML Apixaban 2.5 MG BID 06/29 09 AC 06/30 PO 0839 Budesonide/ 2 PUF BID 06/30 09 AC Formoterol Fumarate INH Citalopram 10 MG DAILY 06/29 899 DC Hydrobromide PO Citalopram 10 MG DAILY 06/29 0900 AC 06/30 Hydrobromide PO 0839 Dextrose/Sodium 1,000 ML ONCE ONE 06/30 0115 AC 06/30 Chloride IV 06/30 1434 0122 Dextrose/Sodium 1,000 ML .[id number] 06/28 1115 DC 06/29 Chloride IV 0036 Docusate Sodium 100 MG BID 06/28 2100 AC 06/30 PO 0839 Hydromorphone HCl 2 MG Q4P PRN 06/28 1115 DC 06/29 PO 2159 Hydromorphone HCl 4 MG Q4P PRN 06/28 1115 DC 06/29 PO 1700 Ketorolac 15 MG Q8P PRN 06/28 1115 AC 06/30 Tromethamine IV 0838 Montelukast Sodium 10 MG DAILY 06/29 09 DC PO Montelukast Sodium 10 MG DAILY 06/29 0900 AC 06/30 PO 0839 Morphine Sulfate 2 MG Q6P PRN 06/30 0115 AC IV Morphine Sulfate 2 MG Q2P PRN 06/28 1115 DC 06/29 IV 2040 Naloxone HCl 0.4 MG ONCE ONE 06/30 0045 DC 06/30 IV 06/30 0046 0035 Omeprazole 20 MG DAILY AC 06/29 0700 DC 06/29 PO 0547 Ondansetron HCl 4 MG Q6P PRN 06/28 1115 06/30 IV 0019 Patient Medication 1 ED ONE ONE 06/29 1645 NC Teaching ED 06/29 1646 Polyethylene Glycol 17 GM DAILY 06/29 0900 06/30 PO 0838 Promethazine HCl 12.5 MG Q6P PRN 06/28 1115 IV 07/05 0944 Sodium Chloride 500 ML BOLUS ONE 06/29 1345 DC 06/29 IV 06/29 1444 1338 Results Last 48 Hours of Labs: Laboratory Tests 06/30 06/30 0745 0050 Chemistry Sodium (137 - 145 mmol/L) 137 137 Potassium (3.5 - 5.1 mmol/L) 4.1 4.3 Chloride (98 - 107 mmol/L) 104 102 Carbon Dioxide (22 - 30 mmol/L) 28 27 Anion Gap (5 - 16) 5 8 BUN (7 - 17 mg/dL) 15 15 Creatinine (0.5 - 1.0 mg/dL) 0.7 0.8 Estimated GFR (>60 ml/min) > 60 > 60 BUN/Creatinine Ratio (7 - 25 %) 21.4 18.8 Phosphorus (2.5 - 4.5 mg/dL) 3.3 Magnesium (1.6 - 2.3 mg/dL) 1.8 1.9 Troponin I (< 0.11 ng/ml) Pending 0.06 Hematology CBC w Diff Pending NO MAN DIFF REQ WBC (4.8 - 10.8 /CUMM) Pending 7.3 RBC (4.20 - 5.40 /CUMM) Pending 2.96 L Hgb (12.0 - 16.0 G/DL) Pending 8.7 L Hct (37 - 47 %) Pending 26.2 L MCV (81.0 - 99.0 FL) Pending 88.5 MCH (27.0 - 31.0 PG) Pending 29.5 MCHC (33.0 - 37.0 G/DL) Pending 33.4 RDW (11.5 - 14.5 %) Pending 14.0 Plt Count (130 - 400 /CUMM) Pending 179 MPV (7.4 - 10.4 FL) Pending 7.8 Gran % (42.2 - 75.2 %) 71.8 Lymphocytes % (20.5 - 51.1 %) 19.9 L Monocytes % (1.7 - 9.3 %) 8.1 Eosinophils % (0 - 5 %) 0 Basophils % (0.0 - 2.0 %) 0.2 Absolute Granulocytes (1.4 - 6.5 /CUMM) 5.2 Absolute Lymphocytes (1.2 - 3.4 /CUMM) 1.5 Absolute Monocytes (0.10 - 0.60 /CUMM) 0.6 Absolute Eosinophils (0.0 - 0.7 /CUMM) 0 Absolute Basophils (0.0 - 0.2 /CUMM) 0 06/30 06/29 0045 0820 Blood Gas pH (7.35 - 7.45 PH) 7.41 pCO2 (35 - 45 TORR) 39 pO2 (80 - 100 TORR) 79 L HCO3 (21 - 28 MEQ/L) 24 ABG O2 Sat (Measured) (>96.0 %) 95.0 L P-50 (Temp Corrected) N Carboxyhemoglobin (1.5 - 5.0 %) 0.1 L O2 Concentration % 4L O2 Delivery Method N/C Chemistry Sodium (137 - 145 mmol/L) 137 Potassium (3.5 - 5.1 mmol/L) 3.4 L Chloride (98 - 107 mmol/L) 101 Carbon Dioxide (22 - 30 mmol/L) 27 Anion Gap (5 - 16) 9 BUN (7 - 17 mg/dL) 14 Creatinine (0.5 - 1.0 mg/dL) 0.6 Estimated GFR (>60 ml/min) > 60 BUN/Creatinine Ratio (7 - 25 %) 23.3 Hematology CBC w Diff NO MAN DIFF REQ WBC (4.8 - 10.8 /CUMM) 7.6 RBC (4.20 - 5.40 /CUMM) 3.16 L Hgb (12.0 - 16.0 G/DL) 9.5 L Hct (37 - 47 %) 28.1 L MCV (81.0 - 99.0 FL) 88.9 MCH (27.0 - 31.0 PG) 30.0 MCHC (33.0 - 37.0 G/DL) 33.7 RDW (11.5 - 14.5 %) 13.7 Plt Count (130 - 400 /CUMM) 190 MPV (7.4 - 10.4 FL) 8.1 Gran % (42.2 - 75.2 %) 71.6 Lymphocytes % (20.5 - 51.1 %) 20.9 Monocytes % (1.7 - 9.3 %) 7.2 Eosinophils % (0 - 5 %) 0 Basophils % (0.0 - 2.0 %) 0.3 Absolute Granulocytes (1.4 - 6.5 /CUMM) 5.5 Absolute Lymphocytes (1.2 - 3.4 /CUMM) 1.6 Absolute Monocytes (0.10 - 0.60 /CUMM) 0.6 Absolute Eosinophils (0.0 - 0.7 /CUMM) 0 Absolute Basophils (0.0 - 0.2 /CUMM) 0 Miscellaneous Phlebotomy Draw Site RIGHT RADIAL Recent Imaging Studies: EXAM TYPE: RAD - XRY-PORTABLE CHEST XRAY EXAMINATION: XR PORTABLE CHEST CLINICAL INFORMATION: Unresponsive. Rule out acute pathology. COMPARISON: None TECHNIQUE: Portable frontal view of the chest was obtained. FINDINGS: The lung apices are not included on the [id number] of this study. There is a left basilar opacity with small left pleural effusion. The right base is clear. No gross evidence of pneumothorax. The cardiomediastinal silhouette is mildly prominent. IMPRESSION: Small left pleural effusion with associated basilar atelectasis/pneumonia. DICTATED BY: Elias Reece MD DATE/TIME DICTATED:06/30/17110 EFFICIENCY MINER BLASTING:GREGORIO DATE/TIME TRANSCRIBED:06/30/17110 EXAM TYPE: US - US-UNILATERAL VENOUS DOPPLER EXAMINATION: US TRIPLEX LOWER EXTREMITY, RIGHT CLINICAL INFORMATION: Swelling and tenderness right lower extremity. COMPARISON: None TECHNIQUE: Color-flow triplex imaging with spectral analysis and compression Doppler were performed on the lower extremity. FINDINGS: Per technologist note, the exam was extremely limited due to immobility. The popliteal fossa could not be visualized. The exam could not be completed secondary to pain. The right common femoral, femoral, and proximal greater saphenous venous segments appear patent. IMPRESSION: Limited, incomplete exam without evidence of thrombus in the right common femoral or femoral veins. DICTATED BY: Asad Hill MD DATE/TIME DICTATED:06/29/172037 EFFICIENCY MINER BLASTING:GREGORIO DATE/TIME TRANSCRIBED:06/29/172037 Assessment/Plan Assessment/Plan This 67 year old female with signif hx asthma and dvt/pe with IVC filter is POD# 2 s/p R AMADA with right thigh hematoma, Dr Santos is aware, no surgical intervention at this time, hematoma will likely resolve on its own in time. Rec ice packs and mobilize. Will continue to trend H&H. Right leg US-DVT study was limited but did not show DVT RAPID RESPONSE OVERNIGHT, narcan given, per medicine ?aspiration pneumonia. cxr shows small left pleural effusion and bilat atelectasis/pneumonia, started on Unasyn. thigh hematoma- Ice packs to thigh and mobilize NPO FOR NOW UNTIL CLEARED BY SWALLOW EVAL Cont Unasyn for ? aspiration pneumonia try to limit narcotics- will add IV tylenol Cont IVF for hydration eliquis 2.5mg BID - dvt ppx oob with PT total resp care- IST / duonebs appreciate medicine input with management of asthma and resp status will d/w Core Measures Venous Thromboembolism VTE Risk Factors Surgery No Mechanical VTE Prophylaxis d/t N/A MechProphylax Ordered No VTE Pharm Prophylaxis d/t NA PharmProphylax ordered
[2017-06-30 09:04] VITALS: BP 108/60
[2017-06-30 09:40] LABS: ABSOLUTE BASOPHIL COUNT 0 /CUMM (0.0-0.2); ABSOLUTE EOSINOPHIL COUNT 0 /CUMM (0.0-0.7); ABSOLUTE GRANULOCYTE CT 4.6 /CUMM (1.4-6.5); ABSOLUTE LYMPH COUNT 1.5 /CUMM (1.2-3.4); ABSOLUTE MONOCYTE COUNT 0.7 /CUMM (0.10-0.60); BASOPHIL % 0.2 % (0.0-2.0); EOSINOPHIL % 0 % (0-5); GRANULOCYTE % 67.9 % (42.2-75.2); MEAN CORPUSCULAR HGB 30.4 PG (27.0-31.0); MEAN CORPUSCULAR HGB CONC 34.2 G/DL (33.0-37.0); MEAN CORPUSCULAR VOLUME 88.9 FL (81.0-99.0); MEAN PLATELET VOLUME 8.5 FL (7.4-10.4); PLATELET COUNT 161 /CUMM (130-400); RBC DISTRIBUTION WIDTH 13.9 % (11.5-14.5); WHITE BLOOD CELL COUNT 6.8 /CUMM (4.8-10.8)
[2017-06-30 14:34] VITALS: BP 104/62
--- NOTE | 2017-06-30 14:40 | CT SCAN REPORT ---
EXAMINATION: CT ANGIOGRAM OF THE CHEST WITH AND WITHOUT CONTRAST (CT PULMONARY ANGIOGRAM FOR PE) CLINICAL INFORMATION: Hypoxia. Decreased mentation. Per chart: Admitted unresponsive. COMPARISON: Portable chest x-ray done earlier today TECHNIQUE: Prior to contrast administration, noncontrast localization images were obtained. Subsequently, multidetector volumetric imaging was performed from the thoracic inlet to below the diaphragms following the administration of 95 mL Optiray 320 intravenous contrast. No contrast reaction reported. Sagittal, coronal, and MIP oblique sagittal reformatted images were obtained on the CT workstation, uploaded to PACS, and reviewed. Total exam dose-length product 304 mGy-cm. FINDINGS: Veneer Drier: Mediastinal widening. The heart is enlarged. QUALITY OF STUDY/CONTRAST BOLUS: Satisfactory PULMONARY ARTERIES: No central or segmental pulmonary emboli. THORACIC AORTA: The patient has a right-sided aortic arch with an aberrant left subclavian artery. LUNG: Multiple peripheral tree in bud opacities involve the posterior segment of the right upper lobe. There is bilateral segmental consolidation of the lower lobes. Fine reticular interstitial opacities are present in both lung apices. PLEURA: No pleural effusion or pneumothorax. MEDIASTINUM: Heart enlarged. No evidence of septal bowing or right heart strain. No lymphadenopathy. CHEST WALL/AXILLA: No axillary or internal mammary lymphadenopathy. OSSEOUS STRUCTURES: No acute or suspicious osseous abnormality. Kyphosis secondary to degenerative disc disease in the midthoracic spine UPPER ABDOMEN: Unremarkable. No reflux of contrast into the hepatic veins to suggest elevated right heart pressures. IMPRESSION: 1. No evidence of pulmonary embolism. 2. Right-sided aortic arch with aberrant left subclavian artery. 3. Early right upper lobe pneumonia and bilateral segmental lower lobe pneumonia. VTE: Negative.
[2017-07-01] VITALS (9 sets, daily range): BP systolic 90–110; BP diastolic 42–62
--- NOTE | 2017-07-01 07:12 | PN- Medicine Consult ---
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 Santos's service for right total hip replacement. She underwent THR on June 28. A rapid response was called after patient appeared lethargic in the early hours of 06/30. Medicine team has been consulted for management of suspected aspiration pneumonia and hypoxia. Plan: #Acute hypoxic respiratory failure query PE vs aspiration PNA vs oversedation due to opiate medication. Currently on nasal cannula 4, attempt to wean down. PE Ruled out. PLAN IV Unasyn for now, consider repeating C-Xay, if negative, follow off antibiotics. Encourage use of incentive spirometer. Follow blood cultures and LRC. TRC Nebs PRN. Discontinue all Dilaudid, use morphine sparingly. Maintain aspiration precautions. #Acute blood loss anemia H&H is stable this morning. Continue to monitor. PLAN CBC IN AM. Follow Iron Studies, B12, Folate. #Status post right total hip replacement Patient's right thigh does appear swollen, improved compared to previous. PLAN Management as per surgery. #History of moderate persistent atopic asthma Currently Stable. Plan TRC Nebulizer Treaments. Continue Symbicort and Albuterol Due to patient's severe history of bronchospasm, avoid all scented products house staff may consider wearing precaution gowns if needed. 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 CBC drifting Down. HGB goal >7. Plan Guaiac all stools. Type and cross match ordered. CBC Daily. Eliquis 2.5 mg. #Constipation Likley opiod induced. Plan Dulcolax, Senna, Colace PRN. If no relief, consider a suppository. Encourage PO Hydration. Patient is a full code. Subjective Subjective: Ms. Morfin was seen and examined this morning. She is resting comfortably in bed. She states that she had no issues overnight. States that she feels much better. Pain in her right hip has drastically improved and is currently well controlled. She has been tolerating PO intake well however she states she has not had a bowel movement movement since her admission. She denies any fever, chills, nausea, vomiting. Denies any wheezing, dyspnea or dyspnea on exertion. Review of Systems Constitutional: Reports: see HPI. Objective Last 24 Hrs of Vital Signs/I&O Vital Signs Date Time Temp Pulse Resp B/P B/P Pulse O2 O2 Flow FiO2 Mean Ox Delivery Rate 07/01 0924 92 Room Air Room Air 07/01 08 98 Nasal 4.0L Cannula 07/01 0631 97.8 61 20 110/62 98 07/01 0000 Nasal 4.0L Cannula 06/30 1600 95 Nasal 4.0L Cannula 06/30 1443 Nasal 2.0L Cannula 06/30 1434 98.2 71 18 104/62 95 Nasal 2.0L Cannula Intake & Output 07/01 1600 07/01 0800 07/01 0000 Intake Total 130 460 Output Total Balance 130 460 Intake, IV 130 460 Physical Exam General Appearance: well developed/nourished, no apparent distress, alert, awake Neck: normal inspection Cardiovascular: regular rate/rhythm Respiratory: normal breath sounds, Expiratory Wheezing noted at lung bases Abdomen: normal bowel sounds, soft Back: normal inspection Extremities: normal inspection, normal capillary refill, no edema, Right thigh swollen, improved in size from previous exam, No drainage. No erythma. Warm. Sensation Intact. Neurologic/Psychiatric: no motor/sensory deficits, awake, alert, oriented x 3 Skin: intact, normal color Current Medications: Current Medications Sig/Tomasa Start time Last Medication Dose Route Stop Time Status Admin Acetaminophen 1,000 MG Q6H 06/30 1330 DC 07/01 N/A 1 UNIT IV 07/01 0744 0750 Acetaminophen 1,000 MG Q6H 06/30 0915 DC N/A 1 UNIT IV 07/01 0329 Acetaminophen 650 MG Q4P PRN 06/28 1115 AC PO Albuterol Sulfate 3 ML Q4 HRS NEEDED PRN 06/30 0530 AC 07/01 INH 0922 Albuterol Sulfate 2 PUF Q6-PRN PRN 06/28 1115 AC INH Ampicillin Sodium/ 3,000 MG Q6H 06/30 0200 AC 07/01 Sulbactam Sodium IV 0825 Sodium Chloride 100 ML Apixaban 2.5 MG BID 06/29 0900 AC 07/01 PO 0825 Bisacodyl 5 MG DAILY 07/01 0900 AC 07/01 PO 1012 Budesonide/ 2 PUF BID 06/30 0900 AC Formoterol Fumarate INH Citalopram 10 MG DAILY 06/29 0900 AC 07/01 Hydrobromide PO 0825 Dextrose/Sodium 1,000 ML ONCE ONE 06/30 0115 DC 06/30 Chloride IV 06/30 1434 0122 Docusate Sodium 100 MG BID 06/28 2100 AC 07/01 PO 0825 Hydromorphone HCl 2 MG Q4P PRN 07/01 0845 AC 07/01 PO 0850 Ketorolac 15 MG Q8P PRN 06/28 1115 AC 06/30 Tromethamine IV 0838 Montelukast Sodium 10 MG DAILY 06/29 0900 AC 07/01 PO 0825 Morphine Sulfate 2 MG Q6P PRN 06/30 0115 AC IV Ondansetron HCl 4 MG Q6P PRN 06/28 1115 AC 06/30 IV 0019 Polyethylene Glycol 17 GM DAILY 06/29 0900 AC 07/01 PO 0825 Promethazine HCl 12.5 MG Q6P PRN 06/28 1115 AC IV 07/05 0944 Tramadol HCl 50 MG Q6 07/01 1200 AC PO Results Last 24 Hrs Lab/Hunter Results: Laboratory Tests 07/01/17 0734: CBC w Diff NO MAN DIFF REQ, RBC 2.62 L, MCV 89.7, MCH 30.4, MCHC 33.8, RDW 14.3 , MPV 8.4, Gran % 70.9, Lymphocytes % 21.4, Monocytes % 6.5, Eosinophils % 0.5, Basophils % 0.7, Absolute Granulocytes 4.0, Absolute Lymphocytes 1.2, Absolute Monocytes 0.4, Absolute Eosinophils 0, Absolute Basophils 0
[2017-07-01 08:28] LABS: ABSOLUTE BASOPHIL COUNT 0 /CUMM (0.0-0.2); ABSOLUTE EOSINOPHIL COUNT 0 /CUMM (0.0-0.7); ABSOLUTE LYMPH COUNT 1.2 /CUMM (1.2-3.4); ABSOLUTE MONOCYTE COUNT 0.4 /CUMM (0.10-0.60); BASOPHIL % 0.7 % (0.0-2.0); EOSINOPHIL % 0.5 % (0-5); GRANULOCYTE % 70.9 % (42.2-75.2); HEMATOCRIT 23.5 % (37-47); MEAN CORPUSCULAR HGB 30.4 PG (27.0-31.0); MEAN CORPUSCULAR HGB CONC 33.8 G/DL (33.0-37.0); MEAN CORPUSCULAR VOLUME 89.7 FL (81.0-99.0); MEAN PLATELET VOLUME 8.4 FL (7.4-10.4); PLATELET COUNT 149 /CUMM (130-400); RBC DISTRIBUTION WIDTH 14.3 % (11.5-14.5); RED BLOOD CELL CT 2.62 /CUMM (4.20-5.40); WHITE BLOOD CELL COUNT 5.6 /CUMM (4.8-10.8)
--- NOTE | 2017-07-01 08:43 | PN- Orthopedic ---
Subjective Subjective: pt in bed, pain well controlled when not moving but still signif right thigh pain when mobile. OOB with PT but has not walked down hallway and back, only ambulating around her room. voiding, no BM yet Pt 98% on 4L NC, pt said he baseline O2 sat is 94-95% at home not on O2. Denies CP/SOB, denies fevers Objective Vital Signs and I&Os Vital Signs Date Time Temp Pulse Resp B/P B/P Pulse O2 O2 Flow FiO2 Mean Ox Delivery Rate 07/01 0631 97.8 61 20 110/62 98 07/01 0000 Nasal 4.0L Cannula 06/30 1600 95 Nasal 4.0L Cannula 06/30 1443 Nasal 2.0L Cannula 06/30 1434 98.2 71 18 104/62 95 Nasal 2.0L Cannula 06/30 1023 94 Nasal 4.0L Cannula 06/30 0904 98.9 82 18 108/60 96 Nasal 4.0L Cannula Intake & Output 07/01 1600 07/01 0800 07/01 0000 06/30 1600 06/30 0800 06/30 0000 Intake Total 460 710 375 480 Output Total 300 250 300 Balance 460 410 125 180 Intake, IV 460 650 375 Intake, Oral 60 480 Output, Urine 300 250 300 Physical Exam: gen- NAD resp- expiratory wheezes bilaterally cardiac- RRR abd- soft, NT ext- right thigh still with swelling and tender just distal to Op-site. no erythema, no drainage distal sensory and motor function intact. 2+DP pulse. no calf tenderness Current Medications: Current Medications Sig/Tomasa Start time Last Medication Dose Route Stop Time Status Admin Acetaminophen 1,000 MG Q6H 06/30 1330 DC 07/01 N/A 1 UNIT IV 07/01 0744 0750 Acetaminophen 1,000 MG Q6H 06/30 0915 DC N/A 1 UNIT IV 07/01 0329 Acetaminophen 650 MG Q4P PRN 06/28 1115 AC PO Albuterol Sulfate 3 ML Q4 HRS NEEDED PRN 06/30 0530 AC INH Albuterol Sulfate 2 PUF Q6-PRN PRN 06/28 1115 AC INH Ampicillin Sodium/ 3,000 MG Q6H 06/30 0200 AC 07/01 Sulbactam Sodium IV 0825 Sodium Chloride 100 ML Apixaban 2.5 MG BID 06/29 0900 AC 07/01 PO 0825 Bisacodyl 5 MG DAILY 07/01 09 AC PO Budesonide/ 2 PUF BID 06/30 09 AC Formoterol Fumarate INH Citalopram 10 MG DAILY 06/29 09 AC 07/01 Hydrobromide PO 0825 Dextrose/Sodium 1,000 ML ONCE ONE 06/30 0115 DC 06/30 Chloride IV 06/30 1434 0122 Docusate Sodium 100 MG BID 06/28 2100 AC 07/01 PO 0825 Hydromorphone HCl 2 MG Q4P PRN 07/01 0845 AC PO Ketorolac 15 MG Q8P PRN 06/28 1115 AC 06/30 Trom[place]amine [place] 0838 Montelukast Sodium 10 MG DAILY 06/29 09 AC 07/01 PO 0825 Morphine Sulfate 2 MG Q6P PRN 06/30 0115 AC IV Ondansetron HCl 4 MG Q6P PRN 06/28 1115 AC 06/30 IV 0019 Polyethylene Glycol 17 GM DAILY 06/29 09 AC 07/01 PO 0825 Promethazine HCl 12.5 MG Q6P PRN 06/28 1115 AC IV 07/05 0944 Tramadol HCl 50 MG Q6 07/01 1200 AC PO Results Last 48 Hours of Labs: Laboratory Tests 07/01 06/30 0734 0745 Chemistry Sodium (137 - 145 mmol/L) 137 Potassium (3.5 - 5.1 mmol/L) 4.1 Chloride (98 - 107 mmol/L) 104 Carbon Dioxide (22 - 30 mmol/L) 28 Anion Gap (5 - 16) 5 BUN (7 - 17 mg/dL) 15 Creatinine (0.5 - 1.0 mg/dL) 0.7 Estimated GFR (>60 ml/min) > 60 BUN/Creatinine Ratio (7 - 25 %) 21.4 Magnesium (1.6 - 2.3 mg/dL) 1.8 TIBC (265 - 497 ug/dL) 272 Ferritin (11.1 - 264 ng/mL) 96.1 Troponin I (< 0.11 ng/ml) 0.10 Vitamin B12 (239 - 931 pg/mL) 332 Folate (2.76 - 20.0 ng/mL) 13.0 TSH (0.270 - 4.200 uIU/mL) 1.570 Hematology CBC w Diff Pending NO MAN DIFF REQ WBC (4.8 - 10.8 /CUMM) Pending 6.8 RBC (4.20 - 5.40 /CUMM) Pending 2.70 L Hgb (12.0 - 16.0 G/DL) Pending 8.2 L Hct (37 - 47 %) Pending 24.0 L MCV (81.0 - 99.0 FL) Pending 88.9 MCH (27.0 - 31.0 PG) Pending 30.4 MCHC (33.0 - 37.0 G/DL) Pending 34.2 RDW (11.5 - 14.5 %) Pending 13.9 Plt Count (130 - 400 /CUMM) Pending 161 MPV (7.4 - 10.4 FL) Pending 8.5 Gran % (42.2 - 75.2 %) 67.9 Lymphocytes % (20.5 - 51.1 %) 22.1 Monocytes % (1.7 - 9.3 %) 9.8 H Eosinophils % (0 - 5 %) 0 Basophils % (0.0 - 2.0 %) 0.2 Absolute Granulocytes (1.4 - 6.5 /CUMM) 4.6 Absolute Lymphocytes (1.2 - 3.4 /CUMM) 1.5 Absolute Monocytes (0.10 - 0.60 /CUMM) 0.7 H Absolute Eosinophils (0.0 - 0.7 /CUMM) 0 Absolute Basophils (0.0 - 0.2 /CUMM) 0 06/30 06/30 0050 0045 Blood Gas pH (7.35 - 7.45 PH) 7.41 pCO2 (35 - 45 TORR) 39 pO2 (80 - 100 TORR) 79 L HCO3 (21 - 28 MEQ/L) 24 ABG O2 Sat (Measured) (>96.0 %) 95.0 L P-50 (Temp Corrected) N Carboxyhemoglobin (1.5 - 5.0 %) 0.1 L O2 Concentration % 4L O2 Delivery Method N/C Chemistry Sodium (137 - 145 mmol/L) 137 Potassium (3.5 - 5.1 mmol/L) 4.3 Chloride (98 - 107 mmol/L) 102 Carbon Dioxide (22 - 30 mmol/L) 27 Anion Gap (5 - 16) 8 BUN (7 - 17 mg/dL) 15 Creatinine (0.5 - 1.0 mg/dL) 0.8 Estimated GFR (>60 ml/min) > 60 BUN/Creatinine Ratio (7 - 25 %) 18.8 Phosphorus (2.5 - 4.5 mg/dL) 3.3 Magnesium (1.6 - 2.3 mg/dL) 1.9 Troponin I (< 0.11 ng/ml) 0.06 Hematology CBC w Diff NO MAN DIFF REQ WBC (4.8 - 10.8 /CUMM) 7.3 RBC (4.20 - 5.40 /CUMM) 2.96 L Hgb (12.0 - 16.0 G/DL) 8.7 L Hct (37 - 47 %) 26.2 L MCV (81.0 - 99.0 FL) 88.5 MCH (27.0 - 31.0 PG) 29.5 MCHC (33.0 - 37.0 G/DL) 33.4 RDW (11.5 - 14.5 %) 14.0 Plt Count (130 - 400 /CUMM) 179 MPV (7.4 - 10.4 FL) 7.8 Gran % (42.2 - 75.2 %) 71.8 Lymphocytes % (20.5 - 51.1 %) 19.9 L Monocytes % (1.7 - 9.3 %) 8.1 Eosinophils % (0 - 5 %) 0 Basophils % (0.0 - 2.0 %) 0.2 Absolute Granulocytes (1.4 - 6.5 /CUMM) 5.2 Absolute Lymphocytes (1.2 - 3.4 /CUMM) 1.5 Absolute Monocytes (0.10 - 0.60 /CUMM) 0.6 Absolute Eosinophils (0.0 - 0.7 /CUMM) 0 Absolute Basophils (0.0 - 0.2 /CUMM) 0 Retic Count (0.5 - 2.0 %) 2.00 Miscellaneous Phlebotomy Draw Site RIGHT RADIAL Recent Imaging Studies: EXAM TYPE: CAT - CTA CHEST-?PULMONARY EMBOLISM EXAMINATION: CT ANGIOGRAM OF THE CHEST WITH AND WITHOUT CONTRAST (CT PULMONARY ANGIOGRAM FOR PE) CLINICAL INFORMATION: Hypoxia. Decreased mentation. Per chart: Admitted unresponsive. COMPARISON: Portable chest x-ray done earlier today TECHNIQUE: Prior to contrast administration, noncontrast localization images were obtained. Subsequently, multidetector volumetric imaging was performed from the thoracic inlet to below the diaphragms following the administration of 95 mL Optiray 320 intravenous contrast. No contrast reaction reported. Sagittal, coronal, and MIP oblique sagittal reformatted images were obtained on the CT workstation, uploaded to PACS, and reviewed. Total exam dose-length product 304 mGy-cm. FINDINGS: Titrator: Mediastinal widening. The heart is enlarged. QUALITY OF STUDY/CONTRAST BOLUS: Satisfactory PULMONARY ARTERIES: No central or segmental pulmonary emboli. THORACIC AORTA: The patient has a right-sided aortic arch with an aberrant left subclavian artery. LUNG: Multiple peripheral tree in bud opacities involve the posterior segment of the right upper lobe. There is bilateral segmental consolidation of the lower lobes. Fine reticular interstitial opacities are present in both lung apices. PLEURA: No pleural effusion or pneumothorax. MEDIASTINUM: Heart enlarged. No evidence of septal bowing or right heart strain. No lymphadenopathy. CHEST WALL/AXILLA: No axillary or internal mammary lymphadenopathy. OSSEOUS STRUCTURES: No acute or suspicious osseous abnormality. Kyphosis secondary to degenerative disc disease in the midthoracic spine UPPER ABDOMEN: Unremarkable. No reflux of contrast into the hepatic veins to suggest elevated right heart pressures. IMPRESSION: 1. No evidence of pulmonary embolism. 2. Right-sided aortic arch with aberrant left subclavian artery. 3. Early right upper lobe pneumonia and bilateral segmental lower lobe pneumonia. VTE: Negative. DICTATED BY: Rafita Pretty MD DATE/TIME DICTATED:06/30/171422 MANAGER EPIC:GREGORIO DATE/TIME TRANSCRIBED:06/30/171422 Assessment/Plan Assessment/Plan This 67 year old female with signif hx asthma and dvt/pe with IVC filter is POD# 3 s/p R AMADA with ?right thigh hematoma, Dr Santos is aware, no surgical intervention at this time, hematoma will likely resolve on its own in time. CTA of chest was neg for PE but does show an early RUL pneumonia ?right thigh hematoma- Ice packs to thigh and mobilize. Will continue to trend H&H. reg diet Cont Unasyn for RUL pneumonia as per medicine try to limit narcotics- will add ultram and po dilaudid prn breakthrough pain eliquis 2.5mg BID - dvt ppx oob with PT encoiurage mobilization and IS total resp care- IST / duonebs appreciate medicine input with management of asthma and resp status Pt will need outpatient FU with her investor relations director will d/w Core Measures Venous Thromboembolism VTE Risk Factors Surgery No Mechanical VTE Prophylaxis d/t N/A MechProphylax Ordered No VTE Pharm Prophylaxis d/t NA PharmProphylax ordered
[2017-07-02 06:00] VITALS: BP 116/56
--- NOTE | 2017-07-02 07:12 | PN- Medicine Consult ---
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 Santos's service for right total hip replacement. She underwent THR on June 28. Plan: A rapid response was called after patient appeared lethargic in the early hours of 06/30. Medicine team has been consulted for management of suspected aspiration pneumonia and hypoxia. Plan: #Acute hypoxic respiratory failure query PE vs aspiration PNA vs oversedation due to opiate medication. PE Ruled out. PLAN Augmentin 875 Q12, total of seven days of Abx coverage. Encourage use of incentive spirometer. Follow blood cultures and LRC. TRC Nebs PRN. Discontinue all Dilaudid, use morphine sparingly. Maintain aspiration precautions. #Acute blood loss anemia H&H is stable this morning. Continue to monitor. PLAN S/P One unit PRBC CBC IN AM. Follow Iron Studies, B12, Folate. #Status post right total hip replacement Patient's right thigh does appear swollen. Continue to have compartment syndomre on differential. Management as per surgery. #History of moderate persistent atopic asthma Currently Stable. Plan TRC Nebulizer Treaments. Continue Symbicort and Albuterol Due to patient's severe history of bronchospasm, avoid all scented products house staff may consider wearing precaution gowns if needed. 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 H/H: 9.1/26.6 HGB goal >8 Plan Guaiac all stools. Type and cross match ordered. CBC Daily. Eliquis 2.5 mg. #Constipation Likley opiod induced. Plan Dulcolax, Senna, Colace PRN. If no relief, consider a suppository. Encourage PO Hydration. Patient is a full code. Subjective Subjective: Mrs. Morfin was seen and examined this morning. Resting comfortably in the chair beside the bed. She is off current supplemental oxygen. States that she was able to have a decent night although still concerned about the swelling and large size of her left hip. She does state that the pain is getting better. Rated at a 4 out of 10 severity. She denies any fever, chills, nausea, vomiting. Denies any cough or shortness of breath. States that she's been able to walk from bed to chair. Has been tolerating PO intake well. Still has not had a bowel movement. Review of Systems Constitutional: Reports: no symptoms. Objective Last 24 Hrs of Vital Signs/I&O Vital Signs Date Time Temp Pulse Resp B/P B/P Pulse O2 O2 Flow FiO2 Mean Ox Delivery Rate 07/02 0800 93 Room Air Room Air 07/02 0800 93 Room Air Room Air 07/02 0600 97.7 74 20 116/56 92 07/02 0000 94 Room Air 07/02 0000 94 Room Air 07/01 2204 98.3 80 20 104/52 95 Nasal 1.0L Cannula 07/01 2000 98.3 80 16 90/60 94 Nasal 1.0L Cannula 07/01 1845 93 Nasal 1.0L Cannula 07/01 1710 98.8 80 16 110/60 95 Nasal 1.0L Cannula 07/01 1705 98.8 80 16 100/60 87 Room Air 07/01 1645 98.0 77 16 110/60 91 Room Air 07/01 1630 98.7 77 16 110/60 92 Room Air 07/01 1600 Room Air 07/01 1600 92 Room Air 07/01 1417 98.0 64 20 100/42 92 Nasal 4.0L Cannula 07/01 1203 97.9 76 20 110/55 93 Room Air Intake & Output 07/02 1600 07/02 0800 07/02 0000 Intake Total 120 1170 Output Total 400 Balance -280 1170 Intake, IV 370 Intake, Oral 120 800 Number 0 Bowel Movements Output, Urine 400 Physical Exam General Appearance: well developed/nourished, no apparent distress, alert Neck: normal inspection Cardiovascular: regular rate/rhythm Respiratory: normal breath sounds, chest non-tender, no respiratory distress Peripheral Pulses: 4+ dorsalis pedis (R), 4+ dorsalis pedis (L) Abdomen: normal bowel sounds, soft, non-tender Back: normal inspection, normal range of motion Extremities: normal inspection, normal capillary refill, Left Hip Swollen. Tender to touch, No erythma. Wound is clean/dry/itact. Neurologic/Psychiatric: no motor/sensory deficits, awake, alert Current Medications: Current Medications Sig/Tomasa Start time Last Medication Dose Route Stop Time Status Admin Acetaminophen 650 MG .STK-MED ONE 07/01 1715 DC PO 07/01 1716 Acetaminophen 650 MG Q4P PRN 06/28 1115 AC 07/02 PO 0547 Albuterol Sulfate 3 ML Q4 HRS NEEDED PRN 06/30 0530 AC 07/01 INH 1845 Albuterol Sulfate 2 PUF Q6-PRN PRN 06/28 1115 AC INH Amoxicillin/ 875 MG Q12 07/01 1324 AC 07/01 Clavulanate Potassium PO 2030 Ampicillin Sodium/ 3,000 MG Q6H 06/30 0200 DC 07/01 Sulbactam Sodium IV 0825 Sodium Chloride 100 ML Apixaban 2.5 MG BID 06/29 0900 AC 07/01 PO 2032 Bisacodyl 10 MG ONCE ONE 07/02 0745 DC [place] 07/02 0746 Bisacodyl 5 MG DAILY 07/01 0900 AC 07/01 PO 1012 Budesonide/ 2 PUF BID 06/30 0900 AC Formoterol Fumarate INH Citalopram 10 MG DAILY 06/29 0900 AC 07/01 Hydrobromide PO 0825 Docusate Sodium 100 MG BID 06/28 2100 AC 07/01 PO 2031 Hydromorphone HCl 2 MG Q4P PRN 07/01 0845 AC 07/01 PO 0850 Ketorolac 15 MG Q8P PRN 06/28 1115 AC 06/30 Tromethamine [place] 0838 Montelukast Sodium 10 MG DAILY 06/29 0900 AC 07/01 PO 0825 Morphine Sulfate 2 MG Q6P PRN 06/30 0115 AC IV Ondansetron HCl 4 MG Q6P PRN 06/28 1115 AC 06/30 IV 0019 Patient Medication 1 ED ONE ONE 07/01 194 DC Teaching ED 07/01 194 Polyethylene Glycol 17 GM DAILY 06/29 0900 AC 07/01 PO 0825 Promethazine HCl 12.5 MG Q6P PRN 06/28 1115 AC IV 07/05 0944 Tramadol HCl 50 MG Q6 07/01 1200 AC 07/02 PO 0526 Results Last 24 Hrs Lab/[facility] Results: Laboratory Tests 07/02/17 0700: CBC w Diff NO MAN DIFF REQ, RBC 3.00 L, MCV 88.6, MCH 30.4, MCHC 34.3, RDW 14.2 , MPV 8.1, Gran % 68.4, Lymphocytes % 22.6, Monocytes % 7.8, Eosinophils % 0.8, Basophils % 0.4, Absolute Granulocytes 4.1, Absolute Lymphocytes 1.3, Absolute Monocytes 0.5, Absolute Eosinophils 0, Absolute Basophils 0
[2017-07-02 07:39] LABS: ABSOLUTE BASOPHIL COUNT 0 /CUMM (0.0-0.2); ABSOLUTE EOSINOPHIL COUNT 0 /CUMM (0.0-0.7); ABSOLUTE GRANULOCYTE CT 4.1 /CUMM (1.4-6.5); ABSOLUTE LYMPH COUNT 1.3 /CUMM (1.2-3.4); ABSOLUTE MONOCYTE COUNT 0.5 /CUMM (0.10-0.60); BASOPHIL % 0.4 % (0.0-2.0); EOSINOPHIL % 0.8 % (0-5); GRANULOCYTE % 68.4 % (42.2-75.2); HEMATOCRIT 26.6 % (37-47); MEAN CORPUSCULAR HGB 30.4 PG (27.0-31.0); MEAN CORPUSCULAR HGB CONC 34.3 G/DL (33.0-37.0); MEAN CORPUSCULAR VOLUME 88.6 FL (81.0-99.0); MEAN PLATELET VOLUME 8.1 FL (7.4-10.4); PLATELET COUNT 189 /CUMM (130-400); RBC DISTRIBUTION WIDTH 14.2 % (11.5-14.5)
--- NOTE | 2017-07-02 09:57 | PN- Orthopedic ---
Subjective Subjective: pt sitting in cahir, still with right thigh pain but ambulated 200ft with PT today and felt good, cleared for home with PT. Deneis fevers, SOB/CP, now off O2. tolerating PO, voiding, still no BM Objective Vital Signs and I&Os Vital Signs Date Time Temp Pulse Resp B/P B/P Pulse O2 O2 Flow FiO2 Mean Ox Delivery Rate 07/02 0800 93 Room Air Room Air 07/02 0800 93 Room Air Room Air 07/02 0600 97.7 74 20 116/56 92 07/02 0000 94 Room Air 07/02 0000 94 Room Air 07/01 2204 98.3 80 20 104/52 95 Nasal 1.0L Cannula 07/01 2000 98.3 80 16 90/60 94 Nasal 1.0L Cannula 07/01 1845 93 Nasal 1.0L Cannula 07/01 1710 98.8 80 16 110/60 95 Nasal 1.0L Cannula 07/01 1705 98.8 80 16 100/60 87 Room Air 07/01 1645 98.0 77 16 110/60 91 Room Air 07/01 1630 98.7 77 16 110/60 92 Room Air 07/01 1600 Room Air 07/01 1600 92 Room Air 07/01 1417 98.0 64 20 100/42 92 Nasal 4.0L Cannula 07/01 1203 97.9 76 20 110/55 93 Room Air Intake & Output 07/02 1600 07/02 0800 07/02 0000 07/01 1600 07/01 0800 07/01 0000 Intake Total 120 1170 910 130 460 Output Total 400 500 Balance -280 1170 410 130 460 Intake, IV 370 110 130 460 Intake, Oral 120 800 800 Number 0 0 Bowel Movements Output, Urine 400 500 Physical Exam: gen- NAD resp- still with slight expiratory wheeze but signifcantly better than yestertday cardiac-rrr abd- soft, NT ext- distal sensory and motor function intact. no calf tenderness, right thigh swelling, no erythema Current Medications: Current Medications Sig/Tomasa Start time Last Medication Dose Route Stop Time Status Admin Acetaminophen 650 MG .STK-MED ONE 07/01 1715 DC PO 07/01 1716 Acetaminophen 650 MG Q4P PRN 06/28 1115 AC 07/02 PO 0547 Albuterol Sulfate 3 ML Q4 HRS NEEDED PRN 06/30 0530 AC 07/01 INH 1845 Albuterol Sulfate 2 PUF Q6-PRN PRN 06/28 1115 AC INH Amoxicillin/ 875 MG Q12 07/01 1324 AC 07/01 Clavulanate Potassium PO 2030 Ampicillin Sodium/ 3,000 MG Q6H 06/30 0200 DC 07/01 Sulbactam Sodium IV 0825 Sodium Chloride 100 ML Apixaban 2.5 MG BID 06/29 0900 AC 07/01 PO 2032 Bisacodyl 10 MG ONCE ONE 07/02 0745 DC GA 07/02 0746 Bisacodyl 5 MG DAILY 07/01 0900 AC 07/01 PO 1012 Budesonide/ 2 PUF BID 06/30 0900 AC Formoterol Fumarate INH Citalopram 10 MG DAILY 06/29 0900 AC 07/01 Hydrobromide PO 0825 Docusate Sodium 100 MG BID 06/28 2100 AC 07/01 PO 2031 Hydromorphone HCl 2 MG Q4P PRN 07/01 0845 AC 07/01 PO 0850 Ketorolac 15 MG Q8P PRN 06/28 1115 AC 06/30 [place] 0838 Montelukast Sodium 10 MG DAILY 06/29 0900 AC 07/01 PO 0825 Morphine Sulfate 2 MG Q6P PRN 06/30 0115 AC IV Ondansetron HCl 4 MG Q6P PRN 06/28 1115 AC 06/30 IV 0019 Patient Medication 1 ED ONE ONE 07/01 1944 DC Teaching ED 07/01 194 Polyethylene Glycol 17 GM DAILY 06/29 0900 AC 07/01 PO 0825 Promethazine HCl 12.5 MG Q6P PRN 06/28 1115 AC IV 07/05 0944 Tramadol HCl 50 MG Q6 07/01 1200 AC 07/02 PO 0526 Results Last 48 Hours of Labs: Laboratory Tests 07/02 07/01 0700 0734 Hematology CBC w Diff NO MAN DIFF REQ NO MAN DIFF REQ WBC (4.8 - 10.8 /CUMM) 6.0 5.6 RBC (4.20 - 5.40 /CUMM) 3.00 L 2.62 L Hgb (12.0 - 16.0 G/DL) 9.1 L 7.9 L Hct (37 - 47 %) 26.6 L 23.5 L MCV (81.0 - 99.0 FL) 88.6 89.7 MCH (27.0 - 31.0 PG) 30.4 30.4 MCHC (33.0 - 37.0 G/DL) 34.3 33.8 RDW (11.5 - 14.5 %) 14.2 14.3 Plt Count (130 - 400 /CUMM) 189 149 MPV (7.4 - 10.4 FL) 8.1 8.4 Gran % (42.2 - 75.2 %) 68.4 70.9 Lymphocytes % (20.5 - 51.1 %) 22.6 21.4 Monocytes % (1.7 - 9.3 %) 7.8 6.5 Eosinophils % (0 - 5 %) 0.8 0.5 Basophils % (0.0 - 2.0 %) 0.4 0.7 Absolute Granulocytes (1.4 - 6.5 /CUMM) 4.1 4.0 Absolute Lymphocytes (1.2 - 3.4 /CUMM) 1.3 1.2 Absolute Monocytes (0.10 - 0.60 /CUMM) 0.5 0.4 Absolute Eosinophils (0.0 - 0.7 /CUMM) 0 0 Absolute Basophils (0.0 - 0.2 /CUMM) 0 0 Assessment/Plan Assessment/Plan This 67 year old female with signif hx asthma and dvt/pe with IVC filter is POD# 4 s/p R TH. now with RUL pneumonia Transfused 1unit of prbcs yesterday and H&H came up. ?right thigh hematoma- Ice packs to thigh and mobilize. 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
[2017-07-02] MEDS ORDERED: AUGMENTIN 875-1 EACH PO (10:14)
--- NOTE | 2017-07-02 10:51 | RADIOLOGY REPORT ---
EXAMINATION: XR PORTABLE CHEST CLINICAL INFORMATION: Hypoxia. COMPARISON: Chest done on 06/30/2017. TECHNIQUE: Portable frontal view of the chest was obtained. FINDINGS: Minimal bibasilar airspace disease is noted likely represent hypoventilatory, atelectatic changes. Incidental note is made of right-sided aortic arch, otherwise cardiac mediastinal silhouette is within normal limits. There is no pleural effusion present. The visualized upper abdomen is unremarkable. IMPRESSION: Nonspecific bibasilar airspace disease, likely represent hypoventilatory, atelectatic changes. Right-sided aortic arch.
[2017-07-02] MEDS ORDERED: TRAMADOL HCL50 M1 PO (11:28)
== END 2017-07-02 14:40 | disposition home health service (06) | DRG 469 ==
LOC: 2NB 04:00 → SDA 04:00 → ENRESERV 10:14 → ENTRNSPT 10:44 → EDTRNSPTSTS 10:52 → EDTRNSPT 10:52 → 2NB 10:57 → CMPTRNSPT 11:11 → ENPENDDIS 07-02 11:27 → ENTRNSPT 07-02 14:07 → EDTRNSPTSTS 07-02 14:34 → EDTRNSPT 07-02 14:34 → 2NB 07-02 14:40 → CMPTRNSPT 07-02 14:44
PROVIDERS: Physician Assistant Surgical; Student in an Organized Health Care Education/Training Program
PROC: 0SR904A Replacement of Right Hip Joint with Ceramic on Polyethylene Synthetic Substitute, Uncemented, Open Approach (ICD-10-PCS; principal; 2017-06-28)
PROC: 30233N1 Transfusion of Nonautologous Red Blood Cells into Peripheral Vein, Percutaneous Approach (ICD-10-PCS; 2017-07-01)
DX: M16.11 Unilateral primary osteoarthritis, right hip (principal); J96.01 Acute respiratory failure with hypoxia; D62 Acute posthemorrhagic anemia; K50.90 Crohn's disease, unspecified, without complications; M96.840 Postprocedural hematoma of a musculoskeletal structure following a musculoskeletal system procedure; J45.909 Unspecified asthma, uncomplicated; Z79.51 Long term (current) use of inhaled steroids; Z79.82 Long term (current) use of aspirin; Z96.651 Presence of right artificial knee joint; Z86.718 Personal history of other venous thrombosis and embolism; Z79.01 Long term (current) use of anticoagulants; Z86.711 Personal history of pulmonary embolism; Z88.2 Allergy status to sulfonamides; Z91.048 Other nonmedicinal substance allergy status; Y83.8 Other surgical procedures as the cause of abnormal reaction of the patient, or of later complication, without mention of misadventure at the time of the procedure; Y79.8 Miscellaneous orthopedic devices associated with adverse incidents, not elsewhere classified; Z95.9 Presence of cardiac and vascular implant and graft, unspecified; T40.605A Adverse effect of unspecified narcotics, initial encounter; Y92.239 Unspecified place in hospital as the place of occurrence of the external cause; K59.03 Drug induced constipation; M81.0 Age-related osteoporosis without current pathological fracture
CPT/HCPCS: 2NBP; 36415; 36592; 71045; 73502-RT; 82436; 86920; 87040; 88304; 93005; 93010; 94799; 97110-GO; 97116-GO; 97161-GP; 97530-GO; C9399; J0131; J0690; J0735; J2405; J2550; J3490; J7040; J7042; P9016